=== PATIENT | male | born 1995 | race African-American/Black ===

== ENCOUNTER 2017-07-27 18:36 | Emergency (ER) | payer MEDICAID ==
[~2017-07-27] VITALS: Ht 180.3 cm; Wt 80.0 kg
[2017-07-27] MEDS ORDERED: MORPHINE SULFATE 4 MG/ML CPJ (NOT FOR IM USE) IV ONE (21:30)
[2017-07-27] MEDS ORDERED: ONDANSETRON HCL 4MG/2ML VIAL IV ONE (21:30)
[2017-07-27 23:30] VITALS: BP 122/85
== END 2017-07-27 23:59 | disposition home or self-care (01) ==
LOC: ER 18:46
DX: M54.2 Cervicalgia (principal); M54.5 Low back pain; R42 Dizziness and giddiness; R11.0 Nausea; J45.909 Unspecified asthma, uncomplicated; I10 Essential (primary) hypertension; V49.9XXA Car occupant (driver) (passenger) injured in unspecified traffic accident, initial encounter; Y93.89 Activity, other specified; Y92.89 Other specified places as the place of occurrence of the external cause
CPT/HCPCS: 70450; 72125; 96374; 96375; 99284; J2270; J2405